=== PATIENT | female | born 1985 | race African-American/Black ===

== ENCOUNTER 2018-07-09 04:48 | Day surgery (SDC) | payer OTHER ==
[2018-07-08 10:31] VITALS: BMI 25.6
[2018-07-09] MEDS ORDERED: oxyCODONE HCL 5 MG TABLET PO PRN ×2 (09:00)
[2018-07-09] MEDS ORDERED: LACTATED RINGERS SOLUTION 1,000 ML IV SCH (09:00)
[2018-07-09] MEDS ORDERED: ONDANSETRON 4 MG/2 ML VIAL IVPUSH PRN (09:00)
[2018-07-09] MEDS ORDERED: MIDAZOLAM HCL 2 MG/2 ML SINGLE DOSE VIAL ONE (11:22)
[2018-07-09] MEDS ORDERED: ACETAMINOPHEN 325 MG TABLET (FP) PO PRN (11:23)
--- NOTE | 2018-07-09 11:23 | HP ---
History & Physical Update - History History: No Change - Physical Physical: No Change - Assessment Assessment: No Change - Plan Plan: No Change (Agree with H&P from 07/08/18, for D&C and hysteroscopy for polyp/ AUB)
[2018-07-09] MEDS ORDERED: KETOROLAC TROMETHAMINE 30 MG/1 ML VIAL ONE (11:42)
[2018-07-09] MEDS ORDERED: LIDOCAINE HCL/PF 2% SDV 5ML VIAL ONE (11:42)
[2018-07-09] MEDS ORDERED: DEXAMETHASONE SOD PHOSPHATE 4 MG/1 ML VIAL ONE (11:42)
[2018-07-09] MEDS ORDERED: PROPOFOL 20 ML ONE (11:43)
[2018-07-09 13:17] VITALS: TEMP 97.5
--- NOTE | 2018-07-09 14:03 | OP ---
Operative Note - Note: Operative Date: 07/09/18 Pre-Operative Diagnosis: AUB, endometrial polyp Operation: hysteroscopic myomectomy/polypectomy, suction D&C Findings: endometrial polyp Post-Operative Diagnosis: Same as Pre-op Surgeon: Lucy Boateng Anesthesiologist/RESEARCH AND DEVELOPMENT TESTER: Quentin Reina Anesthesia: General Specimens Removed: endometrial polyps Estimated Blood Loss (mls): 20 Operative Report Dictated: Yes
[2018-07-09 15:53] VITALS: BP 106/60; PULSE 56
--- NOTE | 2018-07-10 15:50 | OP ---
DATE OF OPERATION: 07/09/2018 PREOPERATIVE DIAGNOSIS: Endometrial polyp and abnormal uterine bleeding. POSTOPERATIVE DIAGNOSIS: Endometrial polyp and abnormal uterine bleeding. PROCEDURE: Hysteroscopic resection of endometrial polyp, suction dilatation and curettage. SURGEON: Luyc Boateng DO ANESTHESIA: General by Quentin Reina MD ESTIMATED BLOOD LOSS: 20 mL. COMPLICATIONS: None. SPECIMENS: Endometrial polyps and endometrial curettings sent to Pathology for permanent evaluation. SPONGE AND INSTRUMENT COUNTS: Correct. DISPOSITION: Stable to PACU. BRIEF HISTORY AND PROCEDURE: Patient is a 33-year-old female who has been seen in the office with complaints of abnormal uterine bleeding. Upon ultrasound examination, was found to have an intrauterine polyp. Patient was counseled on her options and elected to undergo resection of the polyp via hysteroscopy. On July 09, 2018, the patient was admitted to [facility] and consents which were signed in the office prior were reconfirmed. She was then taken back to the operating room, placed in the dorsal lithotomy position, given general anesthesia, prepped and draped in the usual sterile fashion, and a hard timeout was performed. A speculum was placed inside the vagina. The anterior lip of the cervix was grasped with a tenaculum, and the cervix was dilated to accommodate an operative hysteroscope which was advanced to the fundus of the uterus. A lower uterine segment anterior polyp was noted which was resected in several passes using the Versapoint device. Sharp curettage and suction dilatation and curettage were performed to remove all intrauterine contents. One final pass with the hysteroscope revealed no evidence of uterine perforation and complete removal of all endometrial pathology. All instruments were removed from the vagina. The anterior lip of the cervix was noted to have a laceration which was repaired with 2 interrupted 3-0 Vicryl sutures. Excellent hemostasis was achieved. The patient was then awoken from anesthesia and recovering in stable condition in the PACU after the procedure. LUCY BOATENG DO /[id number]
--- NOTE | 2018-07-15 17:51 | PATH ---
Surgical Pathology Report Patient Name: BRO SHELTON [facility]. Rec. #: [id number] /Age/Gender: 1985 (Age: 33) / F Account: [id number] Location: [facility] Taken: 07/09/2018 Received: 07/09/2018 Reported: 07/10/2018 Physicians: Lucy Boateng M.D. Specimen(s) Received ENDOMETRIAL CURETTINGS/ POLYP Clinical History Endometrial polyps Final Diagnosis ENDOMETRIUM AND POLYPS, CURETTAGE: PREDOMINANTLY BLOOD WITH FEW FRAGMENTS OF SECRETORY ENDOMETRIUM, SCANT FRAGMENT OF POLYPOID STROMAL TISSUE SUGGESTIVE OF POLYP AND BENIGN ENDOCERVICAL GLANDULAR TISSUE. Electronically Signed Ирина Mei M.D. Gross Description Received in formalin labeled "endometrial curettings/polyps" are multiple fragments of pink-macdonald tissue admixed with blood clots measuring 6 x 3 x 1 cm in aggregate. Entire specimen submitted in 2 cassettes. MLSZ/07/09/2018 sanml/07/09/2018
== END 2018-07-09 16:10 | disposition home or self-care (01) ==
LOC: JASU-SURG 04:48
PROVIDERS: ATTEND Obstetrics & Gynecology
PROC: 0UJD8ZZ Inspection of Uterus and Cervix, Via Natural or Artificial Opening Endoscopic (ICD-10-PCS; 2018-07-09)
PROC: 0UB97ZX Excision of Uterus, Via Natural or Artificial Opening, Diagnostic (ICD-10-PCS; principal; 2018-07-09 11:30)
PROC: 0UDB7ZX Extraction of Endometrium, Via Natural or Artificial Opening, Diagnostic (ICD-10-PCS; 2018-07-09 11:30)
DX: N84.0 Polyp of corpus uteri (principal); N93.9 Abnormal uterine and vaginal bleeding, unspecified
CPT/HCPCS: 84703; 88305-TC; 94760